=== PATIENT | male | born 1980 | race Caucasian/White ===

== ENCOUNTER 2021-12-22 13:28 | Inpatient (IN) | payer BC ==
[~2021-12-22] VITALS: Ht 188 cm; Wt 99.8 kg
--- NOTE | 2021-12-22 14:15 | NUR ---
VEDA RA99 From home "Shaking/Anxiety". PLACED ON BED, AAOX4, SHAKING.
[2021-12-22] MEDS ORDERED: LORAZEPAM INJ 2 MG/ML VIAL IV ONE ×2 (14:30→16:30)
--- NOTE | 2021-12-22 14:40 | NUR ---
BLOOD DRAWN AND SENT TO LAB
[2021-12-22] MEDS ORDERED: LORAZEPAM INJ 2 MG/ML VIAL ONE ×2 (14:42→16:45)
[2021-12-22 15:18] LABS: BASOPHILS # (AUTO) 0.1 K/uL (0.0-0.2); BASOPHILS % (AUTO) 1.3 % (0.0-2.0); EOSINOPHILS % (AUTO) 0.7 % (0.0-6.0); HEMATOCRIT 40 % (39-51); HEMOGLOBIN 14.2 g/dL (13.5-17.5); LYMPHOCYTES # (AUTO) 1.3 K/uL (0.8-4.8); LYMPHOCYTES % (AUTO) 16.7 % (20.0-44.0); MEAN CORPUSCULAR HGB CONC 36 g/dl (31.0-36.0); MEAN CORPUSCULAR VOLUME 89 fL (80-96); MONOCYTES # (AUTO) 1.3 K/uL (0.1-1.30); MONOCYTES % (AUTO) 16.7 % (2.0-12.0); NEUTROPHILS # (AUTO) 5.1 K/uL (1.8-8.9); NEUTROPHILS % (AUTO) 64.6 % (43.0-81.0); PLATELET COUNT (AUTO) 418 K/uL (150-450); WHITE BLOOD COUNT (AUTO) 7.9 K/uL (4.3-11.0)
[2021-12-22 16:01] LABS: BAND % (MANUAL) 1 % (0.0-5.0); BASOPHILS % (MANUAL) 1 % (0.0-2.0); EOSINOPHILS % (MANUAL) 2 % (0-4); LYMPHOCYTES % (MANUAL) 22 % (16-48); MONOCYTES % (MANUAL) 15 % (0-11.0); NEUTROPHILS % (MANUAL) 59 (42-76)
[2021-12-22 16:04] LABS: ALANINE AMINOTRANSFERASE 66 U/L (12-78); ALBUMIN 4.5 g/dL (3.4-5.0); ALKALINE PHOSPHATASE 72 U/L (46-116); ASPARTATE AMINOTRANSFERASE 37 U/L (15-37); BILIRUBIN,DIRECT 0.1 mg/dL (0.0-0.2); BILIRUBIN,TOTAL 0.4 mg/dL (0.2-1.0); CALCIUM, SERUM 9.5 mg/dL (8.5-10.1); CARBON DIOXIDE 25 mmol/L (21-32); CHLORIDE 81 mmol/L (98-107); CREATININE 1.1 mg/dL (0.6-1.3); GLUCOSE 125 mg/dL (74-106); POTASSIUM 4.1 mmol/L (3.5-5.1); TOTAL PROTEIN, SERUM 8.2 g/dL (6.4-8.2); UREA NITROGEN, BLOOD 11 mg/dL (7-18)
[2021-12-22 16:11] LABS: SODIUM SERUM 120 mmol/L (136-145)
[2021-12-22] MEDS ORDERED: IV NS 0.9% 1,000 ML BAG IV ONE (16:30)
--- NOTE | 2021-12-22 17:06 | NUR ---
SWAB FOR COVID19 SENT TO LAB
[2021-12-22] MEDS ORDERED: ZOLPIDEM TARTRATE 5 MG TABLET PO PRN (18:30)
[2021-12-22] MEDS ORDERED: Z GUARD REMEDY 4 OZ OINT TP PRN (18:30)
[2021-12-22] MEDS ORDERED: ACETAMINOPHEN 325 MG TABLET PO PRN (18:30)
[2021-12-22] MEDS ORDERED: MAGNESIUM HYDROXIDE 30 ML UDC PO PRN (18:30)
[2021-12-22] MEDS ORDERED: ONDANSETRON HCL/PF 4 MG/2 ML VIAL IVP PRN (18:30)
[2021-12-22] MEDS ORDERED: MAG HYDROX/AL HYDROX/SIMETH 30 ML UDC PO PRN (18:30)
--- NOTE | 2021-12-22 18:59 | NUR ---
ROOM 113-2
--- NOTE | 2021-12-22 18:59 | NUR ---
REPORT TO BE GIVEN NEXT SHIFT
--- NOTE | 2021-12-22 19:31 | NUR ---
REPORT GIVEN TO ODIN HARRISON 113-2 FOR ILANA
[2021-12-22 20:00] VITALS: BP 136/86
[2021-12-22] MEDS ORDERED: BUTA1CAP46 PO (20:01)
[2021-12-22] MEDS ORDERED: ALPR0.5T PO (20:01)
[2021-12-22] MEDS ORDERED: CHLO25TA2 PO (20:01)
[2021-12-22] MEDS ORDERED: SUMA50TA PO (20:01)
[2021-12-22] MEDS ORDERED: VALS160T2 PO (20:01)
--- NOTE | 2021-12-22 20:07 | NUR ---
PT TRANSFERRED TO [facility] VIA ACLS PROTOCOL. VSS. ALL BELONGINGS WITH PT.
[2021-12-22] MEDS: IV NS 0.9% 1,000 ML IV PRN (20:37)
[2021-12-22] MEDS: LORAZEPAM INJ 2 MG/ML VIAL IV PRN (20:38)
[2021-12-22] MEDS ORDERED: VALSARTAN 80 MG TABLET PO ONE (23:00)
[2021-12-23] MEDS: LORAZEPAM INJ 2 MG/ML VIAL IV PRN ×2 (02:50→08:48)
[2021-12-23 04:00] VITALS: BP 116/75
--- NOTE | 2021-12-23 05:23 | NUR ---
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 WOULD LIKE TO SPEAK WITH PTS PRIMARY PHYSICIAN WHILE INPATIENT. SHE IS ALSO REQUESTING MRI WITH PITUITARY PROTOCOL TO R/O SIADH. WILL ENDORSE TO AM SHIFT.
[2021-12-23 06:22] LABS: BASOPHILS # (AUTO) 0.1 K/uL (0.0-0.2); BASOPHILS % (AUTO) 0.9 % (0.0-2.0); EOSINOPHILS % (AUTO) 1.2 % (0.0-6.0); HEMATOCRIT 40 % (39-51); LYMPHOCYTES % (AUTO) 15.7 % (20.0-44.0); MEAN CORPUSCULAR HGB CONC 35 g/dl (31.0-36.0); MEAN CORPUSCULAR VOLUME 90 fL (80-96); MONOCYTES # (AUTO) 1.1 K/uL (0.1-1.30); MONOCYTES % (AUTO) 17.2 % (2.0-12.0); NEUTROPHILS # (AUTO) 4.1 K/uL (1.8-8.9); PLATELET COUNT (AUTO) 414 K/uL (150-450); RED BLOOD CELL COUNT(AUTO) 4.41 MIL/uL (4.5-6.0); WHITE BLOOD COUNT (AUTO) 6.3 K/uL (4.3-11.0)
[2021-12-23 07:21] LABS: CALCIUM, SERUM 9.4 mg/dL (8.5-10.1); MAGNESIUM 2.1 mg/dL (1.8-2.4); POTASSIUM 3.8 mmol/L (3.5-5.1)
--- NOTE | 2021-12-23 07:23 | NUR ---
RN NOTES RECEIVED PATIENT FROM [facility]. PATIENT IS A/O X 4 ON ROOM AIR SATURATING IN THE 90S. SKIN IS INTACT. IV ACCESS IN THE RIGHT HAND 20 GAUGE WITH NORMAL SALINE RUNNING AT 75 MLS/HR. WILL CONTINUE PLAN OF CARE AND ANTICIPATE NEEDS.
[2021-12-23 09:44] LABS: BAND % (MANUAL) 3 % (0.0-5.0); LYMPHOCYTES % (MANUAL) 17 % (16-48); MONOCYTES % (MANUAL) 15 % (0-11.0); NEUTROPHILS % (MANUAL) 65 (42-76)
[2021-12-23] MEDS: IV NS 0.9% 1,000 ML IV PRN (10:05)
[2021-12-23 12:00] VITALS: BP 116/75
--- NOTE | 2021-12-23 14:26 | NUR ---
RN NOTES PATIENT HAS BEEN DISCHARGED TO HOME. REVIEWED DISCHARGE INSTRUCTIONS, DISCONTINUED IV ACCESS AND REMOVED HOSPITAL ID BAND. PATIENT SIGNED DISCHARGE INSTRUCTIONS AND BELONGINGS LIST. PROVIDED EDUCATION ON DIAGNOSIS ALONG WITH SMOKING CESSATION, VTE PROPHYLAXIS, AND MRSA. PATIENT WALKED TO FRONT OF THE BUILDING IN STABLE CONDITION AND LEFT FACILITY IN A PRIVATE VEHICLE.
== END 2021-12-23 14:03 | disposition home or self-care (01) | DRG 645 ==
LOC: ER 13:31 → TELE1 19:04 → MEDSG1 23:19
PROVIDERS: ADMIT Nurse Practitioner Acute Care; ATTEND Nurse Practitioner Acute Care
DX: E22.2 Syndrome of inappropriate secretion of antidiuretic hormone (principal); F41.9 Anxiety disorder, unspecified; R25.1 Tremor, unspecified; I10 Essential (primary) hypertension
CPT/HCPCS: 36415; 71045-TC; 80048-TC; 80076-TC; 83735-TC; 84100-TC; 84484-TC; 85025-TC; C9803; G0378; J2060; J7030